=== PATIENT | female | born 1975 | race Caucasian/White ===

== ENCOUNTER 2016-10-30 06:10 | Day surgery (SDC) | payer OTHER ==
[2016-10-29 11:33] VITALS: BMI 23.8
[2016-10-30] MEDS ORDERED: ePHEDrine SULFATE 50 MG/1 ML AMPULE ONE (07:25)
[2016-10-30] MEDS ORDERED: PROPOFOL 20 ML ONE ×2 (07:26)
[2016-10-30] MEDS ORDERED: MIDAZOLAM HCL 2 MG/2 ML SINGLE DOSE VIAL ONE ×2 (07:26)
[2016-10-30] MEDS ORDERED: SUCCINYLCHOLINE CHLORIDE 200 MG/10 ML VIAL ONE (07:26)
[2016-10-30] MEDS ORDERED: LIDOCAINE HCL 1%, 10 MG/ML (20ML VIAL) ONE (07:48)
[2016-10-30] MEDS ORDERED: BUPIVACAINE HCL/PF 0.25% (2.5MG/ML) 10 ML VIAL ONE (07:48)
[2016-10-30] MEDS ORDERED: ceFAZolin SODIUM 1 GM VIAL IVPB ONE (08:15)
[2016-10-30] MEDS ORDERED: ACETAMINOPHEN INJECTION 100 ML IVPB ONE (08:16)
[2016-10-30] MEDS ORDERED: BUPIVACAINE HCL/PF 0.25% (2.5MG/ML) 10 ML VIAL IJ ONE (08:22)
[2016-10-30] MEDS ORDERED: LIDOCAINE HCL 1%, 10 MG/ML (50 mL VIAL) IJ ONE (08:22)
[2016-10-30] MEDS ORDERED: ceFAZolin SODIUM 1 GM VIAL ONE (08:45)
[2016-10-30] MEDS ORDERED: SODIUM CHLORIDE 0.9% P/F 10 ML VIAL IJ ONE (08:48)
[2016-10-30] MEDS ORDERED: PHENYLEPHRINE HCL 10 MG/1 ML SINGLE DOSE VIAL ONE (08:49)
[2016-10-30] MEDS ORDERED: DEXAMETHASONE SOD PHOSPHATE 4 MG/1 ML VIAL ONE (09:17)
[2016-10-30] MEDS ORDERED: BUPIVACAINE HCL/PF 0.5% (5MG/ML) 10 ML VIAL IJ ONE (09:21)
[2016-10-30] MEDS ORDERED: DEXAMETHASONE SOD PHOSPHATE 4 MG/1 ML VIAL NR ONE (09:21)
[2016-10-30] MEDS ORDERED: oxyCODONE HCL 5 MG TABLET PO PRN (09:44)
[2016-10-30] MEDS ORDERED: ONDANSETRON 4 MG/2 ML VIAL IVPUSH PRN (09:44)
[2016-10-30] MEDS ORDERED: PROMETHAZINE HCL 25 MG/1 ML VIAL IVPUSH PRN (09:44)
[2016-10-30] MEDS ORDERED: LACTATED RINGERS SOLUTION 1,000 ML IV SCH (09:45)
--- NOTE | 2016-10-30 09:46 | OP ---
Operative Note - Note: Operative Date: 10/30/16 Pre-Operative Diagnosis: Arthrtis, Hallux Limitus, Exostosis left first metatarsal phalangeal joint Operation: Cheilectomy, exostectomy left first metatarsal phalangeal joint Findings: Dorsal exostosis base of left hallux proximal phalanx and first metatarsal head. Surgeon: Rosalva Epperson Anesthesiologist/LUNCH COUNTER MANAGER: Shravan Liang Anesthesia: MAC Specimens Removed: Bone Estimated Blood Loss (mls): 1
[2016-10-30] MEDS ORDERED: oxyCODONE HCL 5 MG TABLET ONE (11:58)
[2016-10-30 15:32] VITALS: BP 100/60; PULSE 78
[2016-10-30 15:49] VITALS: TEMP 97.6
--- NOTE | 2016-10-31 15:40 | OP ---
DATE OF OPERATION: 10/30/2016 PREOPERATIVE DIAGNOSES: Hallux rigidus, left foot; exostosis, left 1st metatarsophalangeal joint; arthritis, left 1st metatarsophalangeal joint. POSTOPERATIVE DIAGNOSES: Hallux rigidus, left foot; exostosis, left 1st metatarsophalangeal joint; arthritis, left 1st metatarsophalangeal joint. OPERATION: Cheilectomy, exostectomy. ANESTHESIA: Local with IV sedation. SURGEON: Rosalva Epperson DPM HEMOSTASIS: Pneumatic ankle tourniquet. ESTIMATED BLOOD LOSS: 1 mL. MATERIALS: None. PATHOLOGY: Bone. COMPLICATIONS: None. OPERATIVE PROCEDURE: The patient was brought to the operating room and placed on the operating table in supine position. Pneumatic ankle tourniquet was then placed on the patient's left ankle. Following IV sedation, local anesthesia was obtained utilizing 10 mL of a 1:1 mixture of 1% lidocaine plain and 0.5% Marcaine plain. The foot was then scrubbed, prepped, and draped in the usual aseptic manner. An Esmarch bandage was then utilized to exsanguinate the patient's left foot and the tourniquet was inflated. Attention was then directed to the dorsal aspect of the 1st metatarsophalangeal joint of the left foot, where a 4 cm linear longitudinal incision was made just medial and parallel to the tendon of the extensor hallucis longus. The incision was deepened through the subcutaneous tissues using sharp and blunt dissection to the level of the capsule. Care was taken to identify and retract all vital neural and vascular structures. All bleeders were ligated and cauterized as necessary. At this time, a longitudinal capsulotomy was performed over the dorsal aspect of the 1st metatarsophalangeal joint. The periosteal and capsular structures were then carefully dissected free and reflected medially and laterally, thus exposing the dorsal aspect of the head of the left 1st metatarsal and the base of the proximal phalanx of the left hallux. A large exostosis was noted on the dorsal aspect of the metatarsal head. An exostosis was also noted on the dorsal aspect of the base of the proximal phalanx of the left hallux. The cartilage was noted to be intact with no defects. There was also limited dorsiflexion of the left hallux on the 1st metatarsal head due to this exostosis. Utilizing a sagittal bone saw, the dorsal exostosis was resected, on the dorsal aspect of the 1st metatarsal head as well as the dorsal aspect of the base of the proximal phalanx. The bone was then passed from the operative field. The dorsal aspect of the metatarsal head and the base of the proximal phalanx was also burred and smoothed until good motion in the joint was appreciated. The wound was then flushed with copious amounts of sterile saline and the periosteal and capsular structures were reapproximated using 3-0 Vicryl. The subcutaneous tissue was then closed with 4-0 Vicryl. Skin edges were then coapted using 4-0 nylon. Incision was dressed with Betadine-soaked Adaptic and covered with sterile compressive dressing such as 4 x 4's and Tiffanie after a postoperative injection consisting of 5 mL of a 1:5 mixture of 1 mg Decadron and 0.5% Marcaine plain was infiltrated around the surgical site. The tourniquet was then deflated and immediate hyperemia returned to all digits. The foot was then wrapped with Coban and an Shane bandage. The patient tolerated the procedure well and was transferred to the recovery room with all vital signs stable and vascular status intact to the feet. Following postoperative monitoring, the patient will be discharged and given instructions, which were discussed prior to the surgery. TIM WEN/[id number]
--- NOTE | 2016-11-01 13:26 | PATH ---
Surgical Pathology Report Patient Name: EDWIN RAMÍREZ [facility]. Rec. #: [id number] /Age/Gender: 1975 (Age: 41) / F Account: [id number] Location: [facility] SURGICAL Taken: 10/30/2016 Received: 10/30/2016 Reported: 11/01/2016 Physicians: Rosalva Epperson DPM Specimen(s) Received BONE 1ST METATARSAL LEFT Clinical History Exostosis, hallux rigidus left foot Final Diagnosis BONE, LEFT FIRST METATARSAL, EXOSTECTOMY: SCLEROTIC BONE AND CARTILAGE WITH DEGENERATIVE CHANGES. Electronically Signed Giovany Mcgee M.D. Gross Description Received in formalin labeled "bone first metatarsal" are 2 villaseñor, irregular portions of bone measuring 1.6 x 0.9 x 0.3 cm and 1.5 x 0.3 x 0.3 cm. The larger portion is trisected and the specimen is entirely submitted in one cassette, following decalcification. 10/31/201610/31/2016
== END 2016-10-30 13:45 | disposition home or self-care (01) ==
LOC: JASU-SURG 06:10
PROVIDERS: ATTEND Podiatrist Foot Surgery
PROC: 0QSP0ZZ Reposition Left Metatarsal, Open Approach (ICD-10-PCS; 2016-10-30)
PROC: 0QBP0ZZ Excision of Left Metatarsal, Open Approach (ICD-10-PCS; principal; 2016-10-30 08:00)
DX: M20.22 Hallux rigidus, left foot (principal); M89.9 Disorder of bone, unspecified; M19.072 Primary osteoarthritis, left ankle and foot
CPT/HCPCS: 73630-TC-LT; 84703; 88304-TC; 88311-TC; 94760; 97116-GP

== ENCOUNTER 2018-05-01 06:13 | Day surgery (SDC) | payer OTHER ==
[2018-04-30 12:40] VITALS: BMI 23.8
[2018-05-01] MEDS ORDERED: oxyCODONE HCL 5 MG TABLET PO PRN (07:37)
[2018-05-01] MEDS ORDERED: ONDANSETRON 4 MG/2 ML VIAL IVPUSH PRN (07:37)
[2018-05-01] MEDS ORDERED: LACTATED RINGERS SOLUTION 1,000 ML IV SCH (07:45)
--- NOTE | 2018-05-01 07:51 | HP ---
History & Physical Update - History History: No Change - Physical Physical: No Change - Assessment Assessment: No Change - Plan Plan: No Change (H & P done on 04/20/18)
[2018-05-01] MEDS ORDERED: LIDOCAINE HCL/PF 2% SDV 5ML VIAL ONE ×3 (07:55→08:16)
[2018-05-01] MEDS ORDERED: PROPOFOL 20 ML ONE (07:55)
[2018-05-01] MEDS ORDERED: MIDAZOLAM HCL 2 MG/2 ML SINGLE DOSE VIAL ONE (07:55)
[2018-05-01] MEDS ORDERED: LIDOCAINE HCL 1%, 10 MG/ML (20ML VIAL) PNB ONE (08:10)
[2018-05-01] MEDS ORDERED: TRIAMCINOLONE ACETONIDE 40 MG/ML 10 ML VIAL IJ ONE (08:23)
[2018-05-01] MEDS ORDERED: TRIAMCINOLONE ACET 40MG/1ML VIAL ONE (08:24)
[2018-05-01] MEDS ORDERED: BENZOIN/ALOE VERA/STORAX/TOLU 58 ML BOTTLE ONE (08:34)
--- NOTE | 2018-05-01 08:54 | OP ---
Operative Note - Note: Operative Date: 05/01/18 Pre-Operative Diagnosis: Left shoulder soft tissue mass Operation: Excision, left shoulder soft tissue mass Implants: 1.5 cm subcutaneous mass Surgeon: Dmitry Lomeli Anesthesia: Local, MAC Specimens Removed: shoulder subcutaneous mass Estimated Blood Loss (mls): 2 Operative Report Dictated: Yes
[2018-05-01 10:05] VITALS: TEMP 97.7
--- NOTE | 2018-05-01 10:50 | OP ---
DATE OF OPERATION: 05/01/2018 PROCEDURE: Excision biopsy of left anterior shoulder soft tissue mass. PREOPERATIVE DIAGNOSIS: Left shoulder soft tissue mass. POSTOPERATIVE DIAGNOSIS: Left shoulder soft tissue mass. SURGEON: Dmitry Lomeli MD ANESTHESIA: Local with sedation. FINDINGS AND PROCEDURE: This is a 43-year-old female who presents with 1.5-cm somewhat cystic soft tissue mass of the left shoulder. On physical examination, patient has somewhat mildly erythematous somewhat cystic 1.5-cm mass of the said area. So, patient was advised excisional biopsy of the mass, and consent was obtained after discussing the risks, benefits, and alternatives of the procedure. Patient was brought to the operating room and placed in supine position of right lateral decubitus position. Intravenous sedation was given by the anesthesia team. The operative site was prepped and draped in the usual sterile fashion. Using lidocaine 2%, local anesthesia was administered to the proposed incision site. A 2-cm elliptical incision using scalpel blade No. 15 was done with dissection carried down to subcutaneous tissue. Further dissection using iris scissors was done until the somewhat fibrotic mass was completely excised down to the subcutaneous layer together with the ellipse of skin. About 1 ml of Kenalog was injected intradermally. The wound was undermined to about 0.5 cm on each side, and hemostasis was obtained using Bovie cautery. The wound was then closed with interrupted Vicryl 3-0 suture for the dermis and continuous Biosyn 4-0 suture for the subcuticular layer. Wound closure was reinforced with Steri-Strips and covered with pressure dressing. Patient was transferred to the post-anesthesia care unit in satisfactory condition. ESTIMATED BLOOD LOSS: About 2 mL. WOUND CLASS: Clean. Sonu [id number] MTDD
[2018-05-01] MEDS ORDERED: BUPIVACAINE HCL/PF 0.5% (5MG/ML) 10 ML VIAL ONE (12:35)
[2018-05-01 13:00] VITALS: BP 116/73; PULSE 75
--- NOTE | 2018-05-05 10:51 | PATH ---
Surgical Pathology Report Patient Name: EDWIN RAMÍREZ [facility]. Rec. #: [id number] /Age/Gender: 1975 (Age: 43) / F Account: [id number] Location: [facility] SURGICAL Taken: 05/01/2018 Received: 05/01/2018 Reported: 05/05/2018 Physicians: Dmitry Lomeli M.D. Specimen(s) Received MASS, LEFT SHOULDER Clinical History Left shoulder mass Final Diagnosis SKIN, SHOULDER, LEFT, EXCISION: DERMAL SCAR WITH KELOIDAL-TYPE COLLAGEN. SEE COMMENT. Comment: Findings are consistent with hypertrophic scar or keloid. Suggest clinical correlation. Electronically Signed Amada Whatley M.D. Gross Description Received in formalin labeled "mass left shoulder" is an ellipse of villaseñor skin and underlying adipose tissue measuring 1.5 x 1 cm, excised to a depth of 1 cm. Skin surface shows focal fibrosis. The specimen is bisected and entirely submitted in one cassette. MLShellyZ/05/01/2018 kira/05/01/2018
== END 2018-05-01 11:00 | disposition home or self-care (01) ==
LOC: JASU-SURG 06:13
PROVIDERS: ATTEND Surgery
PROC: 0JBF0ZZ Excision of Left Upper Arm Subcutaneous Tissue and Fascia, Open Approach (ICD-10-PCS; principal; 2018-05-01 07:30)
DX: D48.1 Neoplasm of uncertain behavior of connective and other soft tissue (principal)
CPT/HCPCS: 84703; 88305-TC; 94760